=== PATIENT | male | born 1955 | race Caucasian/White ===

== ENCOUNTER 2017-09-25 13:36 | Emergency (ER) | payer OTHER ==
[2017-09-25 13:43] VITALS: TEMP 98.1; BMI 30.9
[2017-09-25 13:44] VITALS: BP 129/65; PULSE 83
--- NOTE | 2017-09-25 14:02 | PDOC ---
History of Present Illness - General Chief Complaint: Pain, Acute Stated Complaint: RIGHT FOOT PAIN Time Seen by Provider: 09/25/17 14:00 History Source: Patient - History of Present Illness Initial Comments: 09/25/17 14:00 Patient is a 62 y.o. male with a PMH of CAD, [place] (s/p stent x2) presents c/o a 2 day h/o of R foot pain. Patient notes the pain started acutely yesterday evening and is qualitatively described as "sharp" as well as "stabbing" and "burning." Patient notes he is able to ambulate however he has significant pain. Patient further notes he has a h/o of gout for which his chief telephone operator prescribed Colchine (no NSAID). Patient notes he had a similar pain in June 2017 at which time he took the Colchicine and his pain resolved the next day. Allergies: Tetanus Surgical: Cholecystectomy, Stent x2 Social: denies cigarettes, denies alcohol, denies recreational drugs PMD: Dr. Puneet scott Past History - Past Medical History Allergies/Adverse Reactions: Allergies Allergy/AdvReac Type Severity Reaction Status Date / Time tetanus and diphtheria Allergy Verified 09/25/17 13:38 toxoids Home Medications: Ambulatory Orders Alprazolam [Xanax] 0.5 mg PO BID PRN 08/27/16 Amiodarone HCl 200 mg PO DAILY 08/27/16 Aspirin [ASA -] 325 mg PO DAILY 08/27/16 Atorvastatin Ca [Lipitor] 80 mg PO HS 08/27/16 Clopidogrel Bisulfate [Plavix -] 75 mg PO DAILY 08/27/16 Digoxin [Lanoxin -] 0.125 mg PO DAILY 08/27/16 Mexiletine HCl 150 mg PO BID 08/27/16 Paroxetine HCl 20 mg PO DAILY 08/27/16 Potassium Chloride [Klor-Con] 20 meq PO DAILY 08/27/16 Spironolactone 25 mg PO DAILY 08/27/16 Tadalafil [Cialis] 20 mg PO PRN 08/27/16 Entresto 97 mg-103 mg Tablet 1 tab PO BID 08/31/16 Torsemide [Demadex -] 80 mg PO BID #240 tablet 09/03/16 Colchicine [Mitigare] 0.6 mg PO ASDIR 09/25/17 Metoprolol Succinate [Toprol Xl -] 50 mg PO DAILY 09/25/17 Cardiac Disorders: Yes (CARDIOMYOPATHY) COPD: No CHF: Yes HTN: Yes Hypercholesterolemia: Yes - Surgical History Cardiac Surgery: Yes (STENT 2003 AND 2010, PPM) Cholecystectomy: Yes Orthopedic Surgery: Yes (5 DISCS REMOVED) - Suicide/Smoking/Psychosocial Hx Smoking History: Former smoker Have you smoked in the past 12 months: No If you are a former smoker, when did you quit?: 2009 Information on smoking cessation initiated: No Hx Alcohol Use: No Drug/Substance Use Hx: No Substance Use Type: None *Physical Exam - Vital Signs Last Vital Signs Temp Pulse Resp BP Pulse Ox 98.1 F 83 18 129/65 98 09/25/17 13:37 09/25/17 13:44 09/25/17 13:37 09/25/17 13:44 09/25/17 13:37 - Physical Exam General Appearance: Yes: Nourished, Appropriately Dressed Respiratory/Chest: positive: Lungs Clear Cardiovascular: positive: S1, S2 Vascular Pulses: Dorsalis-Pedis (R): 3+, Doralis-Pedis (L): 3+ Gastrointestinal/Abdominal: positive: Soft Extremity: positive: Normal Capillary Refill, Normal Range of Motion, Tender, Erythema (RLE erythema over lateral malleous ). negative: Coldness, Cyanosis Neurologic: positive: Fully Oriented, Alert, Other (Normal Gait) Medical Decision Making - Medical Decision Making 09/25/17 14:48 Patient is a 62 y.o. male who presents with 2 day h/o of R foot pain that extends to his ankle. On PE patient is neurovascularly intact, weight bearing however there is mild erythema and significant TTP. PLAN: 1. R foot/ankle XR as per [place] 2. Toradol IM for pain Reassess 09/25/17 15:48 Case d/w patient's PCP Dr. Puneet Aguilar who recommends limited NSAID use given patient's h/o CAD and PCP follow-up. XR shows soft tissue swelling/edema over the lateral malleolus and no acute fracture/dislocation. 09/25/17 15:55 Patient discharged home with instruction to follow up with PCP. *DC/Admit/Observation/Transfer Diagnosis at time of Disposition: Foot pain, right - Discharge Dispostion Disposition: HOME Condition at time of disposition: Stable Admit: No - Patient Instructions Additional Instructions: Please call your primary care physician Dr. Homa Aguilar, for a follow-up appointment within the next 5 days. Please return to the Emergency Department for any worsening or concerning symptoms.
[2017-09-25] MEDS ORDERED: KETOROLAC TROMETHAMINE 15 MG/ML VIAL IM ONE (14:34)
--- NOTE | 2017-09-25 14:36 | PDOC ---
Attending Attestation - Resident Resident Name: Nikky Ponce - ED Attending Attestation I have performed the following: I have examined & evaluated the patient, The case was reviewed & discussed with the resident, I agree w/resident's findings & plan, Exceptions are as noted - HPI HPI: 09/25/17 14:20 62yo M hx CAD stent placement x2, Cardiomyopathy, HTN, PPM, gout p/w atraumatic R foot pain x 3days. Pt reports pain over the dorsum of his foot, reports that it feels like his gout. Has taken colchicine that he states he had lying around , but it just gave him the runs. Denies fevers, chills, rash. Denies chest pain , shortness of breath, diaphoresis. Denies N/V/D. Denies headache, weakness or numbness. - Physicial Exam PE: 09/25/17 14:36 GENERAL: Awake, alert, and fully oriented, in no acute distress HEAD: No signs of trauma EYES: PERRLA, EOMI, sclera anicteric, conjunctiva clear ENT: Auricles normal inspection, hearing grossly normal, nares patent, oropharynx clear without exudates. Moist mucosa NECK: Normal ROM, supple, no lymphadenopathy, JVD, or masses LUNGS: Breath sounds equal, clear to auscultation bilaterally. No wheezes, and no crackles HEART: Regular rate and rhythm, normal S1 and S2, no murmurs, rubs or gallops ABDOMEN: Soft, nontender, normoactive bowel sounds. No guarding, no rebound. No masses EXTREMITIES-> R foot/ankle: 2+ DP pulse. mild erythema without induration or warmth. Ttp and edema over lateral malleoulus & dorsum of foot w/o deformities, no ttp or deformities elsewhere. No swelling, erythema, or ttp of R calf Remainder of extremities: Normal range of motion, no edema. No clubbing or cyanosis. No cords, erythema, or tenderness NEUROLOGICAL: Normal speech, cranial nerves intact, negative pronator drift, 5/ 5 strength in all 4 extremities, normal sensation to light touch in all 4 extremities, normal cerebellar exam, normal gait, normal reflexes and tone SKIN: Warm, Dry, normal turgor, no rashes or lesions noted. - Medical Decision Making 09/25/17 14:38 62-year-old male with multiple medical problems including gout presents with right foot pain that he reports is similar to his previous gout flares. Vitals unremarkable. Right foot exam with some erythema and tenderness to palpation over the lateral malleolus. No induration or warmth, fevers or chills and thus low likelihood for cellulitis/infection. Possible gout flare. We will obtain x- ray to evaluate for bony injury and pain control. Plan: -xray R ankle/foot -toradol -contact PMD -reassess 09/25/17 15:50 Per PMD, OK to give short course of NSAIDs (for 1-2 days) for pain control and have him call for appointment in 1-2 days. XR with soft tissue swelling but no bony injuries. Pain improved with toradol. Pt able to bear weight. I discussed the physical exam findings, ancillary test results and final diagnoses with the patient. I answered all of the patient's questions. The patient was satisfied with the care received and felt comfortable with the discharge plan and treatment plan. The patient will call their primary care physician within 24 hours to arrange follow-up and will return to the Emergency Department with any new, persistent or worsening symptoms.
[2017-09-25] MEDS ORDERED: KETOROLAC TROMETHAMINE 30 MG/1 ML VIAL ONE (14:38)
== END 2017-09-25 15:56 | disposition home or self-care (01) ==
LOC: FER 13:36
PROC: 3E0233Z Introduction of Anti-inflammatory into Muscle, Percutaneous Approach (ICD-10-PCS; principal; 2017-09-25)
DX: M79.671 Pain in right foot (principal); I25.2 Old myocardial infarction; I10 Essential (primary) hypertension; E78.00 Pure hypercholesterolemia, unspecified; I50.9 Heart failure, unspecified; Z95.5 Presence of coronary angioplasty implant and graft; Z87.891 Personal history of nicotine dependence
CPT/HCPCS: 73610-TC-RT; 73630-TC-RT; 96372; 99282-25

== ENCOUNTER 2021-08-06 01:35 | Emergency (ER) | payer OTHER ==
[2021-08-06 01:58] VITALS: BP 120/80; PULSE 59; TEMP 97.6; BMI 23.7
== END 2021-08-06 02:14 | disposition home or self-care (01) ==
LOC: FER 01:35
DX: H92.22 Otorrhagia, left ear (principal)
CPT/HCPCS: 99282-25